=== PATIENT | female | born 1950 | race African-American/Black ===

== ENCOUNTER 2018-01-31 10:50 | Observation (INO) | payer OTHER, BC ==
[2018-01-31] MEDS ORDERED: MORPHINE 4 MG/ML SYR ONE (11:43)
[2018-01-31] MEDS ORDERED: ONDANSETRON 4 MG/2 ML VIAL ONE (11:43)
[2018-01-31 12:09] LABS: Absolute Lymphocytes (CBC) 1.6 K/uL (0.7-4.9); Absolute Monocytes 0.5 K/uL (0.1-1.3); Absolute Neutrophil 2.4 K/uL (1.8-8.0); Basophils % 0.4 % (0-1.3); Eosinophils % 5.5 % (0-4.4); Hematocrit 43.4 % (36.0-45.0); Lymphocytes % 32.8 % (15.3-44.8); MCH 29.1 pg (27.0-35.0); MCV 87.4 fL (80-100); MPV 8.3 fL (7.6-11.3); Monocytes % 10.1 % (3.3-12.3); RBC Red Blood Cell Count 4.96 M/uL (3.86-4.86)
[2018-01-31 12:21] LABS: Potassium 3.7 mmol/L (3.5-5.1)
--- NOTE | 2018-01-31 12:41 | RAD REPORT ---
EXAM DESCRIPTION: CT - Hip Right Wo Con - 01/31/2018 12:24 pm CLINICAL HISTORY: Right hip pain COMPARISON: X-rays on the same date. TECHNIQUE: Computed axial tomography of the right hip were obtained. Coronal and sagittal reconstruc tion was performed. All CT scans are performed using dose optimization technique as appropriate and may include automated exposure control or mA/KV adjustment according to patient size. FINDINGS: No fracture or dislocation is seen. A significant right hip joint effusion is not seen The surrounding muscles of the right hip are normal size and density. IMPRESSION: No acute abnormality displayed
--- NOTE | 2018-01-31 13:35 | ER ---
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 Transition of care: patient was not received from another setting of care. Onset of symptoms was January 31, 2018. Risk Assessment: Do you want to hurt yourself or someone else? Patient reports no desire to harm self or others. Initial Sepsis Screen: Does the patient meet any 2 criteria? No. Patient's initial sepsis screen is negative. Does the patient have a suspected source of infection? No. Patient's initial sepsis screen is negative. Care prior to arrival: None. 11:10 Method Of Arrival: Wheelchair la1 11:10 Acuity: MARITZA 3 la1 Historical: - Allergies: 11:13 Talwin; la1 11:13 batan; la1 - Home Meds: 11:25 gabapentin 300 mg oral cap 1 cap unknown [Active]; Tylenol #3 Oral [Active]; rb1 - PMHx: 11:13 Hypertension; neuropathy; la1 - PSHx: 11:13 tommy knee; la1 - Immunization history:: Adult Immunizations up to date. - Social history:: Smoking status: Patient/guardian denies using tobacco. - Ebola Screening: : No symptoms or risks identified at this time. Screenin:25 Abuse screen: Denies threats or abuse. Nutritional screening: No deficits noted. rb1 Tuberculosis screening: No symptoms or risk factors identified. Fall Risk No fall in past 12 months (0 pts). Secondary diagnosis (15 points) impaired mobility, No IV (0 pts). Ambulatory Aid- Crutches/Cane/Walker (15 pts). Gait- Impaired (20 pts.). Mental Status- Oriented to own ability (0 pts). Total Dennison Fall Scale indicates High Risk Score (45 or more points). Fall prevention measures have been instituted. Side Rails Up X 2 Placed Close to Nursing Station 1:1 Attendant Assigned Frequent Obs/Assessments Occuring Family Present and informed to notify staff if the need to leave the bedside As available patient and family educated on Fall Prevention Program and Strategies. Assessment: 11:25 General: Appears uncomfortable, obese, Behavior is calm, cooperative, Denies fever. rb1 Pain: Complains of pain in right hip Pain radiates to right leg Pain currently is 10 out of 10 on a pain scale. Pain began x 2 weeks. Pain: Aggravated by weight bearing. Neuro: Level of Consciousness is awake, alert, obeys commands, Oriented to person, place, time, situation. Cardiovascular: Capillary refill < 3 seconds is brisk in bilateral fingers toes. Respiratory: Airway is patent Respiratory effort is even, unlabored, Respiratory pattern is regular, symmetrical. GI: No signs and/or symptoms were reported involving the gastrointestinal system. : No signs and/or symptoms were reported regarding the genitourinary system. Derm: Skin is dry, Skin is normal, Skin temperature is warm. Musculoskeletal: Range of motion: intact in all extremities, Reports pain in right hip unable to ambulate or bear weight due to severe pain per pt. report. 12:22 Reassessment: Patient appears in no apparent distress at this time. Patient and/or rb1 family updated on plan of care and expected duration. Pain level reassessed. Patient is alert, oriented x 3, equal unlabored respirations, skin warm/dry/pink. Patient states symptoms have improved. 13:23 Reassessment: Patient appears in no apparent distress at this time. No changes from rb1 previously documented assessment. 14:23 Reassessment: Patient appears in no apparent distress at this time. Patient and/or rb1 family updated on plan of care and expected duration. Pain level reassessed. Patient is alert, oriented x 3, equal unlabored respirations, skin warm/dry/pink. Family at bedside. 15:20 Reassessment: Patient appears in no apparent distress at this time. No changes from rb1 previously documented assessment. 16:32 Reassessment: Patient appears in no apparent distress at this time. Patient and/or rb1 family updated on plan of care and expected duration. Pain level reassessed. Patient is alert, oriented x 3, equal unlabored respirations, skin warm/dry/pink. Family at bedside. Patient states feeling better. 16:35 Reassessment: Called report to EDWARD Foster. Information from the SBAR given. All rb1 questions asked and answered. Vital Signs: 11:13 BP 136 / 74; Pulse 92; Resp 16; Temp 97.6; Pulse Ox 98% on R/A; Weight 115.67 kg; la1 Height 5 ft. 2 in. (157.48 cm); 12:13 BP 142 / 80; Pulse 93; Resp 18; Pulse Ox 99% on R/A; rb1 13:11 BP 136 / 78; Pulse 89; Resp 17; Pulse Ox 100% on R/A; rb1 14:15 BP 133 / 79; Pulse 86; Resp 17; Pulse Ox 98% on R/A; rb1 15:22 BP 130 / 78; Pulse 88; Pulse Ox 98% ; rb1 16:20 BP 157 / 93; Pulse 77; Resp 17; Pulse Ox 100% on R/A; Pain 4/10; rb1 11:13 Body Mass Index 46.64 (115.67 kg, 157.48 cm) la1 ED Course: 10:53 Patient arrived in ED. as 10:53 Dionicio Olvera MD is Private Physician. as 11:12 Triage completed. la1 11:13 Arm band placed on left wrist. la1 11:19 Marlo Christine MD is Attending Physician. kdr 11:21 Sigrid Ruiz, EDWARD is Primary Nurse. rb1 11:40 Placed in gown. Bed in low position. Call light in reach. Side rails up X 1. Side rails jp3 up X2. Warm blanket given. Pulse ox on. NIBP on. 11:50 Initial lab(s) drawn, by me, sent to lab. Inserted saline lock: 22 gauge in left jp3 antecubital area, using aseptic technique. Blood collected. 11:57 Radiology exam delayed due to LINDA STARTING IV \T\ MEDS FIRST, TO CALL CT WHEN PTS READY. sj 12:07 Chem 7 Sent. jp3 12:07 CBC with Diff Sent. jp3 12:24 CT completed. Patient tolerated procedure well. Patient moved back from CT. sj 12:24 Hip Right Wo Con In Process Unspecified. EDMS 13:32 Dionicio Olvera MD is Hospitalizing Provider. kdr 16:45 No provider procedures requiring assistance completed. Patient admitted, IV remains in rb1 place. Administered Medications: 12:08 Drug: morphine 4 mg Route: IVP; Site: left antecubital; hb 12:30 Follow up: Response: No adverse reaction; Pain is decreased rb1 12:08 Drug: Zofran 4 mg Route: IVP; Site: left antecubital; hb 12:30 Follow up: Response: No adverse reaction; Nausea is decreased rb1 Outcome: 13:34 Decision to Hospitalize by Provider. kdr 16:45 Patient left the ED. rb1 16:45 Admitted to Med/surg accompanied by tech, family with patient, via stretcher, room 214, rb1 with chart, Report called to EDWARD Foster 16:45 Condition: stable 16:45 Instructed on the need for admit. Signatures: Dispatcher [employer] EDMS Marlo Christine MD MD kdr Monica Wild Amelia as Attema, Lee, RN RN laSigrid Grande RN RN rb1 Antoinette Bonds RN RN Vinicio Monteiro jp3 Corrections: (The following items were deleted from the chart) 16:57 16:56 Patient left the ED. rb1 rb1
--- NOTE | 2018-01-31 13:35 | EDPHYS ---
Physician Documentation [facility] Name: Chana Donato Age: 68 yrs Sex: Female : 1950 Arrival Date: 01/31/2018 Time: 10:53 Bed 16 Private MD: Dionicio Olvera R ED Physician Marlo Christine HPI: 01/31 13:18 This 68 yrs old Female presents to ER via Wheelchair with complaints of Groin kdr Pain, Leg Pain. 13:19 The patient presents with decreased range of motion, pain, that is chronic, The patient kdr has been unable to ambulate since October and over the last few days, her pain has become more intense and she is now not able to transfer to chair/bed without pain. Family is unable to manage the patient given her weight. 13:41 The complaints affect the right hip, right inner thigh and right upper thigh. Context: kdr The problem was sustained at home, resulted from an unknown cause, the patient is not able to bear weight, the patient is not able to ambulate, Problem is a result from a previous injury: No. Onset: The symptoms/episode began/occurred gradually, Acutely worse the last three days. 15:44 Modifying factors: The symptoms are alleviated by remaining still, the symptoms are kdr aggravated by movement, weight bearing. Associated signs and symptoms: The patient has no apparent associated signs or symptoms. Treatment prior to arrival includes: prescription medications. Severity of symptoms: At their worst the symptoms were moderate, severe, just prior to arrival, in the emergency department the symptoms are actually worse. The patient has not experienced similar symptoms in the past. The patient has been recently seen by a physician: The patient has had ongoing pain since October - over the last three days, she has had worsening pain and is unable to stand or bear weight sufficiently to transfer from bed to chair and family is unable to manage her.. Historical: - Allergies: 11:13 Talwin; la1 11:13 batan; la1 - Home Meds: 11:25 gabapentin 300 mg oral cap 1 cap unknown [Active]; Tylenol #3 Oral [Active]; rb1 - PMHx: 11:13 Hypertension; neuropathy; la1 - PSHx: 11:13 tommy knee; la1 - Immunization history:: Adult Immunizations up to date. - Social history:: Smoking status: Patient/guardian denies using tobacco. - Ebola Screening: : No symptoms or risks identified at this time. Vital Signs: 11:13 BP 136 / 74; Pulse 92; Resp 16; Temp 97.6; Pulse Ox 98% on R/A; Weight 115.67 kg; la1 Height 5 ft. 2 in. (157.48 cm); 12:13 BP 142 / 80; Pulse 93; Resp 18; Pulse Ox 99% on R/A; rb1 13:11 BP 136 / 78; Pulse 89; Resp 17; Pulse Ox 100% on R/A; rb1 14:15 BP 133 / 79; Pulse 86; Resp 17; Pulse Ox 98% on R/A; rb1 15:22 BP 130 / 78; Pulse 88; Pulse Ox 98% ; rb1 16:20 BP 157 / 93; Pulse 77; Resp 17; Pulse Ox 100% on R/A; Pain 4/10; rb1 11:13 Body Mass Index 46.64 (115.67 kg, 157.48 cm) la1 MDM: 13:34 Patient medically screened. kdr 01/31 11:29 Order name: CBC with Diff; Complete Time: 12:52 kdr 01/31 11:29 Order name: Chem 7; Complete Time: 12:52 kdr 01/31 14:01 Order name: Basic Metabolic Panel EDMS 01/31 14:01 Order name: Basic Metabolic Panel EDMS 01/31 14:01 Order name: CBC with Automated Diff EDMS 01/31 14:01 Order name: CBC with Automated Diff EDMS 01/31 11:34 Order name: Hip Right Wo Con; Complete Time: 12:52 EDMS 01/31 14:01 Order name: Social Service Consult EDMS 01/31 14:01 Order name: Regular EDMS Administered Medications: 12:08 Drug: morphine 4 mg Route: IVP; Site: left antecubital; hb 12:30 Follow up: Response: No adverse reaction; Pain is decreased rb1 12:08 Drug: Zofran 4 mg Route: IVP; Site: left antecubital; hb 12:30 Follow up: Response: No adverse reaction; Nausea is decreased rb1 Disposition: 01/31/18 13:34 Hospitalization ordered by Dionicio Olvera for Observation. Preliminary diagnosis are Pain in right hip, Non-ambulatory secondary to right hip pain. - Bed requested for Telemetry/MedSurg (observation). - Status is Observation. rb1 - Condition is Fair. - Problem is an acute exacerbation. - Symptoms have worsened. UTI on Admission? No Signatures: Dispatcher [employer] EDUrsula Sanches, RN RN dw Marlo Christine MD MD kdr Anibal Rojas RN RN la1 Sigrid Ruiz, RN RN rb1 Antoinette Bonds RN RN Corrections: (The following items were deleted from the chart) 15:39 13:34 Hospitalization Ordered by Dionicio Olvera MD for Observation. Preliminary diagnosis dw is Pain in right hip; Non-ambulatory secondary to right hip pain. Bed requested for Telemetry/MedSurg (observation). Status is Observation. Condition is Fair. Problem is an acute exacerbation. Symptoms have worsened. UTI on Admission? No. kdr 16:56 15:39 01/31/2018 13:34 Hospitalization Ordered by Dionicio Olvera MD for Observation. rb1 Preliminary diagnosis is Pain in right hip; Non-ambulatory secondary to right hip pain. Bed requested for Telemetry/MedSurg (observation). Status is Observation. Condition is Fair. Problem is an acute exacerbation. Symptoms have worsened. UTI on Admission? No. dw
[2018-01-31] MEDS: HYDROCODONE/APAP 10/325 TAB PO PRN (20:52)
[2018-02-01 00:41] LABS: Urine Appearance CLEAR; Urine Bilirubin NEGATIVE (NEG); Urine Blood NEGATIVE (NEG); Urine Color YELLOW; Urine Glucose NEGATIVE (NEG); Urine Protein NEGATIVE (NEG); Urine Specific Gravity 1.025 (1.005-1.030); Urine pH 5.5 (5.0-7.0)
[2018-02-01 00:53] LABS: Urine Microscopic Reflex NO UMIC
[2018-02-01] MEDS: HYDROCODONE/APAP 10/325 TAB PO PRN ×3 (04:01→23:33)
[2018-02-01 05:09] LABS: Absolute Lymphocytes (CBC) 1.9 K/uL (0.7-4.9); Absolute Monocytes 0.7 K/uL (0.1-1.3); Absolute Neutrophil 1.9 K/uL (1.8-8.0); Basophils % 0.7 % (0-1.3); Eosinophils % 5.9 % (0-4.4); Hematocrit 38.8 % (36.0-45.0); Lymphocytes % 39.5 % (15.3-44.8); MCH 29.6 pg (27.0-35.0); MCV 87.9 fL (80-100); Monocytes % 13.6 % (3.3-12.3); RBC Red Blood Cell Count 4.42 M/uL (3.86-4.86)
[2018-02-01 05:44] LABS: Potassium 4.1 mmol/L (3.5-5.1)
--- NOTE | 2018-02-01 08:02 | RAD REPORT ---
EXAM DESCRIPTION: RAD - Chest Single View - 02/01/2018 6:43 am CLINICAL HISTORY: Chest pain COMPARISON: None. TECHNIQUE: AP portable chest image was obtained 0629 hours . FINDINGS: Shallow inspiration accentuates lung markings, vasculature and heart size. Significant chino lure or volume overload are not suspected. No focal lung parenchymal process. Heart and vasculature a re normal. No measurable pleural effusion and no pneumothorax. No acute bony abnormality seen. No acu te aortic findings suspected. IMPRESSION: No acute cardiopulmonary process.
[2018-02-01] MEDS: VITAMIN D 1000 UNIT TAB PO SCH (08:53)
[2018-02-01] MEDS: ENOXAPARIN 30 MG/0.3 ML SQ SCH (08:53)
[2018-02-01] MEDS: PANTOPRAZOLE 40MG TABLET PO SCH (08:53)
[2018-02-01] MEDS: LISINOPRIL 20 MG TAB PO SCH (08:53)
[2018-02-01] MEDS: GABAPENTIN 300 MG CAP PO SCH ×3 (08:54→20:37)
--- NOTE | 2018-02-01 18:20 | CON ---
Reason For Consultation: Right hip and groin pain radiating down the right leg. Date of Consult: 02/01/2018 History Of Present Illness: Ms. Donato is a morbidly obese woman, who has previously undergone bilateral knee replacements. She complains of pain in her right hip and groin radiating down the entire right leg. On examination, she is morbidly obese as mentioned with a BMI of 49.8. Review of CT scan of her hip reveals no acute osseous abnormality. Knee has appropriate range of motion , well-healed surgical scar. Neurologic exam reveals a profoundly positive supine nerve root tension testing. There is a weak EHL. Impression: This is likely originating from back with a radicular symptomatology. Unfortunately, due to her size, she is not an operative candidate. I would suggest attempting to manage this with some p.o. steroid. She does not appear to be diabetic. If there is no contraindication, I would recommend steroid trial for her. BALWINDER/BRANT Voice ID: [id number] Report ID: [id number] [id number]
--- NOTE | 2018-02-01 19:17 | HP ---
Date of Admission: 01/31/2018 Chief Complaint: Pain, right hip, right thigh. History Of Present Illness: A 68-year-old female who had bilateral knee replacements, was brought to the emergency room because of pain of right thigh, right hip. The patient is in the physical therap y program from Dr. Ortega. The patient claims that she does not have any history of fever, chills, or rigors. Last week she was seen in the office and venous Doppler did not show any evidence of DVT . A CAT scan was done in the emergency room. This did not show any fracture or any other obvious pa thology. Past Medical History: Positive for hypertension, osteoarthritis, morbid obesity, gastroesophageal re flux disease. Family History: Hypertension, osteoarthritis. Personal History: Nonsmoker. Allergies: PENTAZOCINE. Current Medicines: Protonix, lisinopril, Neurontin, dantrolene. Review of Systems: No chest pain or shortness of breath. Physical Examination: General: Physical exam reveals a 68-year-old obese female. Vital Signs: Normal. HEENT: Negative. Neck: Supple. JVD negative. Chest: Clear. Heart: Regular. Abdomen: Pendulous, nontender. Extremities: Postoperative knees bilaterally noted. There is tenderness in the right upper thigh an d groin area. There is no evidence of limb ischemia. Laboratory: White count normal. CAT scan done in the emergency room yesterday showed no evidence of fracture. Assessment: 1.Right thigh and right hip pain. 2.Status post bilateral knee replacements. 3.Hypertension. 4.Gastroesophageal reflux disease. Plan: I spoke to the ER doctor yesterday regarding difficulty with the justification of this admissi on; however, she is already admitted. The patient is getting pain medication. The patient wants to see Dr. Ortega, who has been her orthopedic surgeon, who is overseeing her physical therapy. He will be consulted. MALA/BRANT Voice ID: [id number]
[2018-02-01] MEDS: DANTROLENE SODIUM 25 MG PO PRN (19:23)
[2018-02-02] MEDS: GABAPENTIN 300 MG CAP PO SCH ×4 (01:28→21:01)
[2018-02-02] MEDS: DANTROLENE SODIUM 25 MG PO PRN ×2 (06:19→22:21)
[2018-02-02] MEDS: ENOXAPARIN 30 MG/0.3 ML SQ SCH (09:10)
[2018-02-02] MEDS: VITAMIN D 1000 UNIT TAB PO SCH (09:11)
[2018-02-02] MEDS: LISINOPRIL 20 MG TAB PO SCH (09:11)
[2018-02-02] MEDS: PANTOPRAZOLE 40MG TABLET PO SCH (09:11)
[2018-02-02] MEDS: HYDROCODONE/APAP 10/325 TAB PO PRN (14:23)
[2018-02-03] MEDS: HYDROCODONE/APAP 10/325 TAB PO PRN (03:27)
[2018-02-03] MEDS: ENOXAPARIN 30 MG/0.3 ML SQ SCH (08:49)
[2018-02-03] MEDS: VITAMIN D 1000 UNIT TAB PO SCH (08:49)
[2018-02-03] MEDS: LISINOPRIL 20 MG TAB PO SCH (08:50)
[2018-02-03] MEDS: predniSONE 20 MG TAB PO SCH ×2 (08:50→21:05)
[2018-02-03] MEDS: GABAPENTIN 300 MG CAP PO SCH ×3 (08:50→21:05)
[2018-02-03] MEDS: PANTOPRAZOLE 40MG TABLET PO SCH (08:50)
--- NOTE | 2018-02-03 17:22 | PN ---
I spoke to the social studies department chair regarding her care. The patient has been changed to observation status. The patient has been seen by Dr. Ortega, who just suggested steroid by mouth. The patient is sta rted on prednisone 20 mg b.i.d. I am still awaiting response from social studies department chair as to what options a re available. MALA/BRANT Voice ID: [id number] Report ID: [id number]
[2018-02-03] MEDS: DANTROLENE SODIUM 25 MG PO PRN (18:50)
[2018-02-04] MEDS: GABAPENTIN 300 MG CAP PO SCH ×3 (08:49→21:42)
[2018-02-04] MEDS: VITAMIN D 1000 UNIT TAB PO SCH (08:49)
[2018-02-04] MEDS: ENOXAPARIN 30 MG/0.3 ML SQ SCH (08:49)
[2018-02-04] MEDS: PANTOPRAZOLE 40MG TABLET PO SCH (08:49)
[2018-02-04] MEDS: LISINOPRIL 20 MG TAB PO SCH (08:49)
[2018-02-04] MEDS: predniSONE 20 MG TAB PO SCH ×2 (08:49→21:43)
[2018-02-04] MEDS: DANTROLENE SODIUM 25 MG PO PRN (13:29)
[2018-02-04] MEDS: HYDROCODONE/APAP 10/325 TAB PO PRN (18:30)
--- NOTE | 2018-02-04 22:25 | PN ---
I spoke to the patient and she is feeling better with the steroids. I told her about forensic social worker's findings and recommendations. The patient will be seen by Physical Therapy and recommendations will be instituted. The patient is already on Lovenox for DVT prophylaxis, which will be continued. MALA/BRANT Voice ID: [id number] Report ID: [id number]
[2018-02-05] MEDS: ENOXAPARIN 30 MG/0.3 ML SQ SCH (08:41)
[2018-02-05] MEDS: HYDROCODONE/APAP 10/325 TAB PO PRN ×2 (08:41→17:09)
[2018-02-05] MEDS: PANTOPRAZOLE 40MG TABLET PO SCH (08:42)
[2018-02-05] MEDS: predniSONE 20 MG TAB PO SCH ×2 (08:42→21:01)
[2018-02-05] MEDS: GABAPENTIN 300 MG CAP PO SCH ×3 (08:42→21:00)
[2018-02-05] MEDS: VITAMIN D 1000 UNIT TAB PO SCH (08:42)
[2018-02-05] MEDS: LISINOPRIL 20 MG TAB PO SCH (08:42)
[2018-02-05] MEDS: DANTROLENE SODIUM 25 MG PO PRN (12:21)
--- NOTE | 2018-02-05 21:54 | PN ---
The patient was able to stand, however she is still unable to ambulate. The patient is due to have c onsultation from Neurology to see whether another diagnosis or approach to her problem could be ident ified. Pending that, she will be continued on the same plan. MALA/BRANT Voice ID: [id number] Report ID: [id number]
[2018-02-06] MEDS: DANTROLENE SODIUM 25 MG PO PRN ×2 (05:53→22:40)
[2018-02-06] MEDS: ENOXAPARIN 30 MG/0.3 ML SQ SCH (09:19)
[2018-02-06] MEDS: VITAMIN D 1000 UNIT TAB PO SCH (09:19)
[2018-02-06] MEDS: GABAPENTIN 300 MG CAP PO SCH ×3 (09:19→21:20)
[2018-02-06] MEDS: PANTOPRAZOLE 40MG TABLET PO SCH (09:19)
[2018-02-06] MEDS: LISINOPRIL 20 MG TAB PO SCH (09:19)
[2018-02-06] MEDS: predniSONE 20 MG TAB PO SCH ×2 (09:19→21:20)
[2018-02-06] MEDS ORDERED: ALPRAZOLAM 0.5 MG TABLET PO ONE (13:23)
[2018-02-06] MEDS: ACETAMINOPHEN 500 MG TAB PO PRN (13:59)
--- NOTE | 2018-02-06 17:22 | PN ---
The patient looks better today. Physical therapy did get her up from the bed. I have not seen Neuro logy consultation report yet pending that she will be continued on Lovenox or on prednisone. MALA/BRANT Voice ID: [id number] Report ID: [id number]
[2018-02-06] MEDS ORDERED: ALPRAZOLAM 1 MG TABLET PO ONE (18:50)
--- NOTE | 2018-02-06 20:13 | RAD REPORT ---
EXAM DESCRIPTION: MRI - Lumbar Spine Wo Con - 02/06/2018 7:47 pm CLINICAL HISTORY: Right leg spasm, unable to bear weight, back pain and lower extremity radiculopath y COMPARISON: CT imaging January 31 TECHNIQUE: Sagittal T1-weighted, T2-weighted and T2-STIR weighted sequences were obtained. Axial T1 -weighted and heavily T2-weighted sequenceswere obtained through the lumbar disc levels. FINDINGS: Lumbar bodies are normal in height. No marrow edema or marrow replacing process. There is accentuated lumbar lordosis. Slight anterior subluxation of L4 on L5 and minimally of L5 on S1. No guerra spicious marrow signal. No paraspinal masses. Conus is normal with no clumping or thickening of the cauda equina. T12-L1 level: No significant findings. L1-2 level: No significant findings. L2-3 level: Mild disc bulge without herniation. No central spinal stenosis. Facet degenerative change and ligamentous thickening present. No significant foraminal stenosis. L3-4 level: Moderate bulging of disc material in the central canal and into each exit foramen. Severe facet hypertrophic degenerative change present. No central spinal stenosis. Moderate severity bilate ral foraminal stenosis is present. L4-5 level: Disc bulge accentuated by the subluxation. No central spinal stenosis. Severe facet degen erative change present. Moderate severity foraminal stenosis. L5-S1 level: Disc is desiccated. There is a broad-based herniation of disc material across the centra l canal continuing as prominent disc bulging each foramen. Spinal stenosis to 9 mm is present. Modera tely advanced right-sided and severe left-sided foramen stenosis secondary to severe facet joint dege nerative change. Pars defects are not confirmed. IMPRESSION: L5-S1 broad-based disc herniation across the entire central canal extending is prominent protruding disc material within each exit foramen. Severe facet degenerative change at this level. L5-S1 changes result in a mild central spinal stenosis, moderately advanced right foraminal stenosis and severe left foraminal stenosis. L4-5 disc bulge. Severe facet degenerative changes present. There is moderate severity bilateral fora zohra stenosis without central spinal stenosis. L3-4 disc bulge without canal or foramen significant stenosis.
--- NOTE | 2018-02-06 21:19 | CON ---
Consultation called by Dr. Olvera because of right groin pain with muscle spasms in the right thigh, l eg and foot. History Of Present Illness: Ms. Donato is a 68-year-old patient, with a history of p eripheral neuropathy and has had bilateral knee replacement, who said she was doing well until October when she began having right groin pain that radiated down the right lower extremity. The pain would be aggravated by standing and somewhat relieved by offloading by sitting down. She also noted swell ing in the lower extremities bilaterally, but the pain again and muscle spasms were mostly on the rig ht. When the symptoms became very significant, she was admitted for an evaluation. Her hip CT scan on the 31 of January showed no acute abnormalities. There was no hip effusion, fracture, or disloc ation identified. Her blood work essentially was unremarkable for her complete blood count with diff erential and basic chemistry panel including calcium as well as magnesium was drawn. Urinalysis was normal. She was placed on dantrolene, the muscle relaxant, which she said has significantly improved the muscle spasms and pain to the point that she hardly notices them at least at the time of my eval uation. Past Medical History: Includes peripheral neuropathy and hypertension. Past Surgical History: Bilateral knee replacement. Allergies: TALWIN AND BETAN. Medications At Home: Gabapentin 300 mg between 2 and 3 times daily, Tylenol No. 3 as needed in addit ion to vitamin D 1000 units daily, Lovenox 30 mg subcutaneously daily, Prinivil 20 mg daily, Protonix 40 mg daily, and prednisone 20 mg twice daily. Family History: Noncontributory. Review of Systems: She indicates the pain in the right groin as indicated with muscle spasms radiating down the right lo wer extremity, which has improved. No neuralgias. There are tingling and numbness in the feet, but those are minimum. No rash. No cranial nerve complaints. No gastrointestinal or genitourinary issu es. No pulmonary issues. No psychiatric issues. Physical Examination: Vital Signs: Blood pressure 130/90, pulse 79, respiratory rate 16, temperature 98, oxygen saturation 96%. Weight 273 pounds. Height 5 feet 2 inches. BMI is elevated to 49.8. General: Ms. Donato is resting in bed. She is in no acute distress. HEENT: She is normocephalic and atraumatic. Sclerae are anicteric. Oropharynx is moist. Neck: Supple. Chest: Clear. Heart: Regular. Extremities: Soft and no cyanosis or edema, except for trace edema in the lower extremities. Neurological: Alert, oriented to situation, place, and person. Follows commands appropriately. Her cranial nerves show no focal deficits on 2 through 12 motor examination in the upper extremities. S he has full strength 5/5 proximally and distally. In the lower extremities on the left side, she is 4+ out of 5, on the right side, 4- out of 5 proximally and distally. She does have stocking-glove lo ss to light touch and temperature and does report slight decrease to touch and temperature in the rig ht L4 and L5 distributions. Reflexes, absent at the patellae and heels, trace in the upper extremiti es. Coordination intact in the upper extremities. Gait, she requires assistance to stand and ambula te because of groin pain. Assessment: Ms. Donato is a 68-year-old patient with right lower extremity muscle spasms. Etiology i ncludes possible lumbar disk herniation with root compression. Also possibly peripheral compression of the femoral nerve. She also has peripheral neuropathy, although etiology is unclear. She has no evidence of diabetes mellitus at this time. Plan: 1.We will schedule lumbar spine MRI without contrast. 2.Continue dantrolene. 3.We will add magnesium twice daily 400 mg and we will have blood work for magnesium level. 4.The patient may have physical therapy to include stretching of the lower extremities to decrease m uscle spasms. 5.Gabapentin dosage can be adjusted to 600 mg twice daily, depending on neuropathic pain. 6.Once the patient is discharged, follow up with Dr. Schaffer in 1 month. TONIE/BRANT Voice ID: [id number] Report ID: [id number]
[2018-02-07] MEDS: PANTOPRAZOLE 40MG TABLET PO SCH (11:28)
[2018-02-07] MEDS: predniSONE 20 MG TAB PO SCH ×2 (11:28→20:13)
[2018-02-07] MEDS: VITAMIN D 1000 UNIT TAB PO SCH (11:28)
[2018-02-07] MEDS: LISINOPRIL 20 MG TAB PO SCH (11:28)
[2018-02-07] MEDS: GABAPENTIN 300 MG CAP PO SCH ×3 (11:28→20:14)
[2018-02-07] MEDS: ENOXAPARIN 30 MG/0.3 ML SQ SCH (11:29)
[2018-02-07] MEDS: ACETAMINOPHEN 500 MG TAB PO PRN (11:42)
--- NOTE | 2018-02-07 12:55 | PN ---
The patient has been seen by Neurology Service. The patient had MRI done which shows L5-S1 herniated disk and spinal stenosis. This obviously will be reviewed by a neurologist to see whether any intervention in terms of surgery is required. The patient is on oral steroids currently. MALA/BRANT Voice ID: [id number] Report ID: [id number]
--- NOTE | 2018-02-07 14:43 | PN ---
The patient's case was discussed with Dr. Segal, the patient's primary care physician. As not ed in the note previously. She has a right lower extremity, spreading muscle spasms along with weakn ess, numbness, and pain in the lower back. She did have lumbar spine MRI without contrast done yeste rday. The study showed at the L5-S1 level a broad-based disk herniation across the entire central ca nal, prominent protrusion into each neural foramina. There is severe facet degeneration seen. She h as changes resulting in central spinal stenosis and moderately advanced right foraminal stenosis and severe left foraminal stenosis. The patient is continued on dantrolene with some improvement in symp toms. At this point, the recommendation was made that the patient requires surgical intervention to relieve the cord and nerve root compression at the L4, L5, and S1 levels. Dr. Segal will work on the resulting transfer to the [facility] in [facility] to effect this intervention if possible. The patient of course will have to be medically managed and cleared prior to any procedure being do ne. Plan: At this time, 1.We will continue with dantrolene as indicated and continue with gabapentin. 2.Continue with moderate doses of magnesium. 3.The patient should be transferred for higher level of care regarding potential surgical interventi on for decompression of the lumbar spinal and nerve root stenosis. Once the patient finishes the jones gideon, she may benefit from aggressive physical therapy perhaps inpatient for perhaps 2, 3, or 4 weeks depending on her improvement and even outpatient therapy after that. The patient will need to follow up with Dr. Schaffer in clinic in 1 or 2 months depending on where she is admeric SCHILLING/BRANT Voice ID: [id number] Report ID: [id number]
[2018-02-08] MEDS: DANTROLENE SODIUM 25 MG PO PRN (02:02)
[2018-02-08] MEDS: PANTOPRAZOLE 40MG TABLET PO SCH (09:00)
[2018-02-08] MEDS: LISINOPRIL 20 MG TAB PO SCH (09:45)
[2018-02-08] MEDS: VITAMIN D 1000 UNIT TAB PO SCH (09:45)
[2018-02-08] MEDS: GABAPENTIN 300 MG CAP PO SCH ×3 (09:46→21:33)
[2018-02-08] MEDS: predniSONE 20 MG TAB PO SCH ×2 (09:46→21:33)
[2018-02-08] MEDS: ENOXAPARIN 30 MG/0.3 ML SQ SCH (09:46)
[2018-02-08] MEDS: ACETAMINOPHEN 500 MG TAB PO PRN (13:22)
--- NOTE | 2018-02-08 22:30 | PN ---
I spoke to the patient regarding her MRI findings as well as neurology consultation. I suggested tra nsfer for possible surgical intervention. However, she wants to talk to her family members before an ything is done. Meanwhile, the patient will be continued on the same plan of management. MALA/BRANT Voice ID: [id number] Report ID: [id number]
[2018-02-09] MEDS: PANTOPRAZOLE 40MG TABLET PO SCH (08:46)
[2018-02-09] MEDS: ENOXAPARIN 30 MG/0.3 ML SQ SCH (08:46)
[2018-02-09] MEDS: VITAMIN D 1000 UNIT TAB PO SCH (08:47)
[2018-02-09] MEDS: predniSONE 20 MG TAB PO SCH ×2 (08:47→20:35)
[2018-02-09] MEDS: GABAPENTIN 300 MG CAP PO SCH ×3 (08:47→20:35)
[2018-02-09] MEDS: LISINOPRIL 20 MG TAB PO SCH (08:47)
[2018-02-09] MEDS: ACETAMINOPHEN 500 MG TAB PO PRN (20:35)
--- NOTE | 2018-02-10 00:51 | PN ---
The patient feeling better. Again, I spoke to her regarding the MRI findings. However, she wants to discuss with her son before she takes any decision as to whether she would consider surgical approac h to her problem as recommended by Dr. Schaffer. MALA/BRANT Voice ID: [id number] Report ID: [id number]
[2018-02-10] MEDS: VITAMIN D 1000 UNIT TAB PO SCH (09:04)
[2018-02-10] MEDS: LISINOPRIL 20 MG TAB PO SCH (09:04)
[2018-02-10] MEDS: predniSONE 20 MG TAB PO SCH (09:04)
[2018-02-10] MEDS: ACETAMINOPHEN 500 MG TAB PO PRN (09:04)
[2018-02-10] MEDS: ENOXAPARIN 30 MG/0.3 ML SQ SCH (09:04)
[2018-02-10] MEDS: PANTOPRAZOLE 40MG TABLET PO SCH (09:04)
[2018-02-10] MEDS: GABAPENTIN 300 MG CAP PO SCH ×3 (09:04→20:50)
--- NOTE | 2018-02-10 23:46 | PN ---
The patient is doing better and I spoke to the son regarding her care after which I also spoke to the patient. She would like to be transferred to get an opinion as to whether surgical intervention wou ld be benefitting her. Transfer plan has been initiated towards all [facility], [facility], and [facility]. MALA/BRANT Voice ID: [id number] Report ID: [id number]
== END 2018-02-10 23:01 | disposition short-term general hospital (02) ==
LOC: ER 10:50 → ERHOLD 13:56 → INTOOBSV 13:56 → 2ND 16:42
PROVIDERS: ADMIT Internal Medicine; ATTEND Internal Medicine
DX: M51.27 Other intervertebral disc displacement, lumbosacral region (principal); M48.07 Spinal stenosis, lumbosacral region; I10 Essential (primary) hypertension; M19.90 Unspecified osteoarthritis, unspecified site; E66.01 Morbid (severe) obesity due to excess calories; Z68.42 Body mass index [BMI] 45.0-49.9, adult; K21.9 Gastro-esophageal reflux disease without esophagitis; Z96.653 Presence of artificial knee joint, bilateral
CPT/HCPCS: 36415; 71045; 72148; 73700; 80048 ×2; 81003; 85025 ×2; 96374; 96375; 97110; 97163; 97530 ×5; 99285; G0378 ×2; J1650 ×10; J2405; J7512